=== PATIENT | male | born 2000 | race Caucasian/White ===

== ENCOUNTER 2021-11-01 21:10 | Emergency (ER) | payer OTHER, SELFPAY ==
[2021-11-01 22:25] VITALS: BP 115/69; PULSE 95; RESP 16; TEMP 37.2; O2SAT 97; BMI 19.5
[2021-11-01 22:58] LABS: COVID-19 Test Negative (Negative)
== END 2021-11-02 00:58 | disposition left against medical advice (07) ==
PROVIDERS: Emergency Provider Emergency Medicine; PCP Pediatrics
DX: R10.9 Unspecified abdominal pain (principal); R11.10 Vomiting, unspecified; Z20.822 Contact with and (suspected) exposure to COVID-19
CPT/HCPCS: 36415; 87635; 99282; 99283